=== PATIENT | male | born 1975 ===

== ENCOUNTER 2017-02-08 07:34 | Inpatient (IN) | payer OTHER ==
[~2017-02-08] VITALS: Ht 175.3 cm; Wt 91.6 kg
[2017-02-08] VITALS (14 sets, daily range): BP systolic 117–144; BP diastolic 63–86
[~2017-02-08 07:34] MED LIST: Dexamethasone 20mg/5ml IVP ONE; ceFAZolin 1gm/50ml Premix 50 ML IV ONE
[2017-02-08] MEDS ORDERED: NKM (07:59)
[2017-02-08] MEDS ORDERED: Chloraseptic Spray 20mL Bottle ORAL PRN (09:45)
[2017-02-08] MEDS ORDERED: LORazepam 0.5mg tab ORAL PRN (09:45)
[2017-02-08] MEDS ORDERED: HydrOXYzine 25mg tab ORAL PRN (09:45)
[2017-02-08] MEDS ORDERED: Morphine Sulfate 4mg/ml Inj IM PRN (09:45)
[2017-02-08] MEDS ORDERED: HYDROmorphone 1mg/ml Carpuject SUBQ PRN (09:45)
[2017-02-08] MEDS ORDERED: Norco 10mg/325mg tab ORAL PRN (09:45)
[2017-02-08] MEDS ORDERED: LR 1000ml 1,000 ML IVLG SCH (10:56)
[2017-02-08] MEDS ORDERED: Ketorolac 30mg Inj IV PRN (11:00)
[2017-02-08] MEDS ORDERED: Norco 5mg/325mg tab ORAL PRN (11:00)
[2017-02-08] MEDS ORDERED: fentaNYL 100 mcg/2 mL IV PRN (11:00)
[2017-02-08] MEDS ORDERED: Metoclopramide 10mg/2ml Inj IVP PRN (11:00)
[2017-02-08] MEDS ORDERED: Midazolam 2mg/2ml Inj IVP PRN (11:00)
[2017-02-08] MEDS ORDERED: LORazepam Inj 2mg/ml 1ml IV PRN (11:00)
[2017-02-08] MEDS ORDERED: Hydromorphone 0.5mg/0.5ml inj IVP PRN (11:00)
[2017-02-08] MEDS ORDERED: DiphenhydrAMINE 50mg/ml Inj IVP PRN (11:00)
[2017-02-08] MEDS ORDERED: oxyCODONE HCL/Acetaminophen 5/325mg ORAL PRN (11:00)
[2017-02-08] MEDS ORDERED: Norco 7.5mg/325mg tab ORAL PRN (11:00)
[2017-02-08] MEDS ORDERED: Ketorolac 60mg Inj IV PRN (11:00)
[2017-02-08] MEDS ORDERED: Atropine Inj 1mg/10ml Syr IV PRN (11:00)
--- NOTE | 2017-02-08 11:01 | Anethesia Preoperative Eval ---
Anesthesia Pre-op PMH/ROS General Date of Evaluation: Feb 08, 2017 Time of Evaluation: 11:56 Anesthesiologist: Ashley ASA Score: ASA 2 Mallampati Score Class I : Soft palate, uvula, fauces, pillars visible Class II: Soft palate, uvula, fauces visible Class III: Soft palate, base of uvula visible Class IV: Only hard plate visible Mallampati Classification: Class II Surgeon: Neetu Diagnosis: Neck Pain Surgical Procedure: ACDF C5-6, C6-7 Anesthesia History: none Family History: no anesthesia problems Allergies: Coded Allergies: No Known Allergies (Unverified , 02/07/17) Medications: see eMAR Past Medical History Other: obesity - BMI 30 PSxH Narrative: Jaw SX Anesthesia Pre-op Phys. Exam Physician Exam Last Vital Signs Date Time Temp Pulse Resp B/P (MAP) Pulse Ox O2 Delivery O2 Flow Rate FiO2 02/08/17 08:11 98.0 53 18 131/68 96 Room Air Constitutional: NAD Neurologic: CN 2-12 intact Cardiovascular: RRR Respiratory: CTA Gastrointestinal: S/NT/ND Airway Exam Mallampati Score: Class II MO: limited ROM: limited Teeth: intact Anesthesia Pre-op A/P Risk Assessment & Plan Assessment: ASA 2 Plan: GA, BIS, Glidescope Status Change Before Surgery: No Pre-Antibiotics Dru Grams Ancef IV Given Within 1 Hr of Incision: Yes Time Given: 12:16 Keagan Ramirez MD Feb 08, 2017 11:01
--- NOTE | 2017-02-08 11:26 | Pre-Procedure Note/Attestation ---
Pre-Procedure Note/Attestation Complete Prior to Procedure Planned Procedure: not applicable Procedure Narrative: adr POSSIBLE acdf c5-c6 acdf c6-c7 Indications for Procedure Pre-Operative Diagnosis: Post trauma neck pain radiculopathy Attestation I attest that I discussed the nature of the procedure; its benefits; risks and complications; and alternatives (and the risks and benefits of such alternatives ), prior to the procedure, with the patient (or the patient's legal solar sales representative). I attest that, if there was a reasonable possibility of needing a blood transfusion, the patient (or the patient's legal solar sales representative) was given the [facility] standardized written summary, pursuant to the [place] Blood Safety Act ([place] Health and Safety Code # 1645, as amended). I attest that I re-evaluated the patient just prior to the surgery and that there has been no change in the patient's H&P, except as documented below: SEDRICK GOOD Feb 08, 2017 11:26
[2017-02-08] MEDS ORDERED: Thrombin 5000 units TOPIC ONE (11:36)
[2017-02-08] MEDS ORDERED: Surgicel 4in x 8in TOPIC ONE (11:36)
[2017-02-08] MEDS ORDERED: Glycopyrrolate 0.2mg/ml 1ml Vial ONE (12:00)
[2017-02-08] MEDS ORDERED: LR 1000ml ONE (12:00)
[2017-02-08] MEDS ORDERED: Zemuron 50mg/5ml Inj IV ONE (12:00)
[2017-02-08] MEDS ORDERED: fentaNYL 100 mcg/2 mL IV ONE (12:00)
[2017-02-08] MEDS ORDERED: Lidocaine 1% Plain 30 ml INJ ONE (12:00)
[2017-02-08] MEDS ORDERED: NS Irrig 1000ml ONE (12:00)
[2017-02-08] MEDS ORDERED: Metoprolol 5mg/5ml Inj ONE (12:00)
[2017-02-08] MEDS ORDERED: Propofol 1,000mg/ 100ml btl IV ONE (12:00)
[2017-02-08] MEDS ORDERED: Sterile Water Irrig 1000ml IRRIG ONE (12:00)
[2017-02-08] MEDS ORDERED: Sterile Water For Irrig 2000ml IRRIG ONE (12:00)
[2017-02-08] MEDS ORDERED: Neostigmine 1mg/ml 10ml Inj ONE (12:00)
[2017-02-08] MEDS ORDERED: Lidocaine 1% MPF 10mg/ml 5ml ONE (12:00)
[2017-02-08] MEDS ORDERED: Acetaminophen (Non formulary) 100 ML IV ONE (12:00)
--- NOTE | 2017-02-08 12:31 | Immediate Post-Op Evaluation ---
Immediate Post-Op Evalulation Immediate Post-Op Evalulation Procedure: ACDF C5-6, C6-7 Date of Evaluation: Feb 08, 2017 Time of Evaluation: 16:00 IV Fluids: 1500LR Blood Products: 0 Estimated Blood Loss: 50 Urinary Output: 0 Blood Pressure Systolic: 143 Blood Pressure Diastolic: 86 Pulse Rate: 87 Respiratory Rate: 16 O2 Sat by Pulse Oximetry: 100 Temperature (Fahrenheit): 97 Pain Score (1-10): 3 Nausea: No Vomiting: No Complications 0 Patient Status: awake, reacts, patent, extubated, none Hydration Status: adequate Dru Grams Ancef IV Given Within 1 Hr of Incision: Yes Time Given: 12:16 Keagan Ramirez MD Feb 08, 2017 12:31
[2017-02-08] MEDS ORDERED: Bacitracin 50000 Units Vial IRRIG ONE (13:04)
--- NOTE | 2017-02-08 16:22 | Brief Operative Note ---
Immediate Post Operative Note Operative Note Pre-op Diagnosis: Post trauma neck pain radiculopathy Procedure: Hemivertebrectomy C5, C6, C7 SSEP High Power Xray Correction deformity Interbody titanium lordotic bone ingrowth prosthesis osteopromotive material C5-6, C6-7 Anterior internal plate fixation C5=6=7 Post-op Diagnosis: same as pre-op Findings: consistent w/pre-op dx studies Surgeon: Neetu CALERO Auto Servicer: krystal OWEN Anesthesiologist: Ashley CALERO Anesthesia: general Specimen: none Complications: none Condition: stable Fluids: anesthesia Estimated Blood Loss: minimal Drains: none Implant(s) used?: Yes SEDRICK GOOD Feb 08, 2017 16:22
[2017-02-08] MEDS ORDERED: Meperidine 50mg/ml Inj(FOR RIGORS ONLY) IVP ONE (16:30)
[2017-02-08] MEDS ORDERED: Naloxone 0.4mg/ml Inj IVP PRN (16:30)
--- NOTE | 2017-02-08 16:30 | Diagnostic Imaging Report ---
Indication: PAIN, intraoperative Technique: Intraoperative images Comparison: None Findings: Surgical tool projects at the anterior aspect of the C5-6 disc. Subsequent images demonstrate anterior fusion and placement of disc spacers at C5-C7. Impression: Intraoperative imaging, as described
[2017-02-08] MEDS ORDERED: D5 1/2NS 1,000 ML IV SCH (18:00)
[2017-02-08] MEDS ORDERED: NORCO 10-325 T1 EACH ORAL (18:41)
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
--- NOTE | 2017-02-08 21:47 | Operative Note - Dictated ---
DATE OF OPERATION: 02/08/2017 ADMITTING/PREOPERATIVE DIAGNOSES: 1. Posttraumatic cervical neck pain with radiculopathy. 2. Herniated nucleus pulposus. POSTOPERATIVE DIAGNOSES: 1. Posttraumatic cervical neck pain with radiculopathy. 2. Herniated nucleus pulposus. OPERATIVE PROCEDURE: 1. Bruce-vertebrectomy C5, C6, C7. 2. Interbody reconstruction. 3. Correction deformity titanium interbody porous ingrowth graft with ostium promoted material C5-C6 and C6-C7. 4. Correction deformity anterior internal plate fixation C5-C6-C7. 5. Decompression spinal cord/nerve root C5-C6, C6-C7. 6. High-power magnification dissection. 7. 8. Intraoperative fluoroscopy interpreted by surgeon. SURGEON: Brenton De Anda, Ph.D. M.D. METER AND SERVICE LINE INSPECTOR: BRAYDEN Cheema. ANESTHESIOLOGIST: Keagan Ramirez M.D. ANESTHESIA: General with intubation. ESTIMATED BLOOD LOSS: Minimal. SPECIMEN: None. COMPLICATIONS: None. DESCRIPTION OF PROCEDURE: The patient was brought to the operating room and in supine position, general anesthesia intubation was induced. After appropriate positioning, a cross-table fluoroscopic image was obtained with a spinal needle within its sheath tapped but not penetrating to the skin on the right side/contralateral to the intended incision of the neck. Cross-table images interpreted demonstrating the correct level for incision placement. Level was marked. Needle removed. Left lateral aspect of the neck marked within a skin fold at the appropriate interval. Anterior cervical spine sterilely prepped and draped free in usual sterile fashion. Transverse incision as previously marker sharply placed at dermis and epidermis. Electrocautery dissection was carried through the subcutaneous tissue to the level of the platysmas muscle that was identified, isolated and transected in line with the incision. Blunt dissection was sequentially carried through the deep cervical and pretracheal fascia to the midline between the right and left longus colli muscles medial to the carotid sheath. The spinal needle bent at 90 degrees so as to avoid penetration greater than 3 mm into the disk space was placed midline into the disk space and a cross-table image was obtained under sterile conditions and interpreted by surgeons and marked appropriately. Longus colli muscle elevation of the appropriate intervals was subperiosteally dissected 3 millimeters on medial and lateral extent. Retractors placed. C5-C6: Severe collapse is noted. Asymmetric right with right lateral osteophyte precluding placement of an artificial disk. Bruce vertebrectomy inferior C5, superior C6 with resection of anterior and posterior osteophytes was undertaken with resection of the posterior anulus. Foraminotomies performed. No dural tears or leaks noted anytime during the procedure. SSEP monitoring stable. Lordotic titanium interpositional graft with correction of deformity from collapse to lordosis was placed into position containing osteopromotive material. Excellent positioning. Attention was turned to C5-C6 intervals where large anterior osteophytes extending from the junction of the proximal middle third of the C6 to the mid aspect of the C7 vertebral body was resected under high-power magnification. Diskectomy was performed. Bruce vertebrectomy inferior C6 and superior C7. Excision of the posterior longitudinal ligament with decompression of spinal cord. Foraminotomies performed. No dural tears or leaks noted anytime during the procedure. SSEP monitoring stable. Interpositional titanium graft to the appropriate dimensions correcting collapse to lordosis was interposed containing osteopromotive material. Fluoroscopic imaging demonstrated excellent alignment and positioning. All traction on the neck-10 pounds-was removed followed by anterior internal plate fixation in a compressive mode with bilateral screws at C5-C6 and C7. Fluoroscopic imaging revealed excellent alignment and position. Wound was irrigated with antibiotic-containing saline. FloSeal applied. A 500 mg of vancomycin powder applied. Reapproximation of the platysmas muscle undertaken only after exploration prior to placement of the vancomycin powder revealed no obvious excoriation or laceration of vital structures. After reapproximation Vicryl suture material of the platysmas muscle, subcuticular reapproximation dermis and epidermis was undertaken followed by transverse surgical strips, sterile bandage maintained in place with tape. The patient was awakened and extubated in the operating room, transported to postoperative recovery in good stable condition. Brenton De Anda M.D. DR: Misbah JOB#: [id number] CC:
[2017-02-08] MEDS ORDERED: ceFAZolin sod 1 GM in D5W 55 ML IV SCH (22:00)
[2017-02-08] MEDS ORDERED: Tubing IV Secondary IV ONE (22:40)
[2017-02-08] MEDS ORDERED: D5 1/2NS 1000ml IV ONE (22:40)
[2017-02-09 13:36] VITALS: BP 132/58
--- NOTE | 2017-02-09 13:36 | 48 Hour Post Anesthesia Eval ---
Post Anesthesia Evaluation Procedure: ACDF C5-6, C6-7 Date of Evaluation: Feb 09, 2017 Time of Evaluation: 13:34 Blood Pressure Systolic: 132 0: 58 Pulse Rate: 72 Respiratory Rate: 20 Temperature (Fahrenheit): 97 O2 Sat by Pulse Oximetry: 98 Airway: patent Nausea: No Vomiting: No Pain Intensity: 2 Hydration Status: adequate Cardiopulmonary Status: stable Mental Status/LOC: patient returned to baseline Follow-up Care/Observations: n/a Post-Anesthesia Complications: none Follow-up care needed: N/A ELIEZER AC M.D. Feb 09, 2017 13:36
--- NOTE | 2017-02-09 13:41 | Discharge Summary ---
Discharge Summary Hospital Course Date of Admission Feb 08, 2017 at 07:34 Date of Discharge Feb 08, 2017 at 22:41 Admitting Diagnosis HPI Santi Delaney is a 41 year old male who was admitted on Feb 08, 2017 at 07:34 for Cervical Disc Protrusion Hospital Course [id number] Discharge Discharge Disposition Patient was discharged to Home (01) Discharge Diagnoses: Kristin Farr NP Feb 09, 2017 13:41
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
== END 2017-02-08 22:41 | disposition home or self-care (01) | DRG 518 ==
LOC: SDSOVERFLO 07:34 → 3E 17:32
PROC: 0RR30JZ Replacement of Cervical Vertebral Disc with Synthetic Substitute, Open Approach (ICD-10-PCS; principal; 2017-02-08 11:00)
PROC: 00NW0ZZ Release Cervical Spinal Cord, Open Approach (ICD-10-PCS; principal; 2017-02-08 11:00)
PROC: 01N10ZZ Release Cervical Nerve, Open Approach (ICD-10-PCS; principal; 2017-02-08 11:00)
DX: M50.122 Cervical disc disorder at C5-C6 level with radiculopathy (principal); M48.52XA Collapsed vertebra, not elsewhere classified, cervical region, initial encounter for fracture; V89.2XXS Person injured in unspecified motor-vehicle accident, traffic, sequela; R07.89 Other chest pain; E66.9 Obesity, unspecified
CPT/HCPCS: 36415; 72040; 76001; 86850; 86900; 86901; 87081; 94003; 94150; J2405; J2710